=== PATIENT | male | born 1980 | race Caucasian/White ===

== ENCOUNTER 2018-03-19 06:35 | Emergency (ER) | payer OTHER ==
[~2018-03-19] VITALS: Ht 172.7 cm; Wt 100.0 kg
[~2018-03-19 06:35] MED LIST: COUGH MEDICATION
[2018-03-19 06:40] VITALS: BP 138/95
[2018-03-19] MEDS ORDERED: KETOROLAC 60 MG/2 ML VIAL IM ONE (07:00)
[2018-03-19 07:33] VITALS: BP 135/81
== END 2018-03-19 07:33 | disposition home or self-care (01) ==
LOC: MED 06:35
DX: S39.012A Strain of muscle, fascia and tendon of lower back, initial encounter (principal); Z85.9 Personal history of malignant neoplasm, unspecified; X58.XXXA Exposure to other specified factors, initial encounter; Y93.89 Activity, other specified; Y92.89 Other specified places as the place of occurrence of the external cause; Y99.8 Other external cause status
CPT/HCPCS: 96372; 99283; J1885

== ENCOUNTER 2018-05-15 02:14 | Emergency (ER) | payer OTHER ==
[~2018-05-15] VITALS: Ht 172.7 cm; Wt 90.7 kg
[2018-05-15 02:17] VITALS: BP 150/100
--- NOTE | 2018-05-15 02:20 | NUR ---
PT TAKEN TO BED 6
--- NOTE | 2018-05-15 02:38 | NUR ---
DR EVALUATED AT BEDSIDE
[2018-05-15] MEDS ORDERED: HYDROcodone/APAP 5/325 MG 1 TAB TAB PO ONE (02:45)
[2018-05-15] MEDS ORDERED: KETOROLAC 30 MG/ML VIAL IM ONE (02:45)
--- NOTE | 2018-05-15 02:46 | NUR ---
PT BIB FAMILY C/O NONPRODUCTIVE COUGH X 2 DAYS. ALSO REPORTS CHEST DISCOMFORT RADIATING TO BACK. DENIES N/V, FEVER/CHILLS. AAOX4, LUNGS CL BIALT. NSR W/O ASST. ER MD AT BEDSIDE FOR EVAL. DENIES PMH
--- NOTE | 2018-05-15 03:18 | NUR ---
X-Ray at bedside.
--- NOTE | 2018-05-15 03:49 | NUR ---
Patient discharged with v/s stable. Written and verbal after care instructions given and explained. Patient alert, oriented and verbalized understanding of instructions. Ambulatory with steady gait. All questions addressed prior to discharge. ID band removed. Patient advised to follow up with PMD. Rx of NORCO 5MG, LIDODERM 5%, NAPROSYN 500MG given. Patient educated on indication of medication including possible reaction and side effects. Opportunity to ask questions provided and answered.
[2018-05-15 03:52] VITALS: BP 136/92
== END 2018-05-15 03:49 | disposition home or self-care (01) ==
LOC: MED 02:14
DX: R07.89 Other chest pain (principal)
CPT/HCPCS: 71045; 96372; 99283; J1885; Q0092

== ENCOUNTER 2018-06-29 21:41 | Emergency (ER) | payer MEDICAID, OTHER ==
[~2018-06-29] VITALS: Ht 172.7 cm; Wt 90.7 kg
[2018-06-29 21:47] VITALS: BP 142/83
--- NOTE | 2018-06-29 21:53 | NUR ---
PT AMBULATED TO LOBBY WITH VSS.
--- NOTE | 2018-06-29 22:10 | NUR ---
PT C/O RIGHT EYE PAIN, 10/10, BLURRED VISION TO RIGHT EYE, WATERING X 1 WEEK. STATES "FEELS LIKE SOMETHING IN MY EYE." PT DENIES RECENT TRAUMA. PT REPORTS SOME DISCHARGE. PT PLACED IN BED. PENDING MD SOUZA.
[2018-06-29] MEDS ORDERED: TETRACAINE HCL/PF 0.5% OPTH 4 ML BTL OP ONE (22:15)
[2018-06-29] MEDS ORDERED: FLUORESCEIN OPTH STRIP 0.6 MG OP ONE (22:15)
[2018-06-29] MEDS ORDERED: KETOROLAC 30 MG/ML VIAL IM ONE (23:00)
[2018-06-29 23:20] VITALS: BP 138/79
--- NOTE | 2018-06-29 23:21 | NUR ---
Patient discharged with v/s stable. Written and verbal after care instructions given and explained. Patient alert, oriented and verbalized understanding of instructions. Ambulatory with steady gait. All questions addressed prior to discharge. ID band removed. Patient advised to follow up with PMD. Rx of TOBRAMYCIN, TYLENOL WITH CODEINE given. Patient educated on indication of medication including possible reaction and side effects. Opportunity to ask questions provided and answered.
== END 2018-06-29 23:21 | disposition home or self-care (01) ==
LOC: MED 21:41
DX: H10.9 Unspecified conjunctivitis (principal); F17.200 Nicotine dependence, unspecified, uncomplicated; Z85.47 Personal history of malignant neoplasm of testis
CPT/HCPCS: 96372; 99283; J1885

== ENCOUNTER 2018-08-13 03:55 | Emergency (ER) | payer MEDICAID ==
[~2018-08-13] VITALS: Ht 170.2 cm; Wt 88.5 kg
[2018-08-13 03:58] VITALS: BP 152/86
[2018-08-13] MEDS ORDERED: LORazepam 2 MG/ML VIAL IM ONE (04:25)
[2018-08-13] MEDS ORDERED: IBUPROFEN 400 MG TAB PO ONE (05:50)
[2018-08-13 06:55] VITALS: BP 159/100
== END 2018-08-13 06:55 | disposition home or self-care (01) ==
LOC: MED 03:55
DX: G47.00 Insomnia, unspecified (principal); G89.29 Other chronic pain; M54.9 Dorsalgia, unspecified; F15.90 Other stimulant use, unspecified, uncomplicated; F17.210 Nicotine dependence, cigarettes, uncomplicated; Z85.47 Personal history of malignant neoplasm of testis
CPT/HCPCS: 96372; 99283; J2060

== ENCOUNTER 2019-01-17 12:03 | Emergency (ER) | payer MEDICAID ==
[~2019-01-17] VITALS: Ht 172.7 cm; Wt 96.2 kg
[2019-01-17 12:07] VITALS: BP 150/90
--- NOTE | 2019-01-17 12:11 | NUR ---
urine cup handed to pt for sample
--- NOTE | 2019-01-17 12:30 | NUR ---
PATIENT LEFT WITHOUT BEING SEEN BY DR. CHANDRA. NO FURTHER CARE PROVIDED FOR PATIENT.
== END 2019-01-17 13:05 | disposition left against medical advice (07) ==
LOC: MED 12:03
DX: R10.30 Lower abdominal pain, unspecified (principal); R11.2 Nausea with vomiting, unspecified; Z53.21 Procedure and treatment not carried out due to patient leaving prior to being seen by health care provider
CPT/HCPCS: 81002